=== PATIENT | female | born 1980 | race Caucasian/White ===

== ENCOUNTER 2018-03-20 04:48 | Emergency (ER) | payer OTHER ==
[2018-03-20] MEDS ORDERED: LORazepam 1 MG TAB ONE (05:12)
[2018-03-20] MEDS ORDERED: LORazepam 2 MG/ML INJ ONE (05:14)
[2018-03-20] MEDS ORDERED: LORazepam 2 MG/ML INJ IVP ONE ×2 (05:19→16:15)
[2018-03-20 05:34] LABS: PLATELET COUNT 265 10^3/uL (150-400)
--- NOTE | 2018-03-20 05:50 | EDPHY ---
H & P Stated Complaint: SI, anxiety, depression, gypsy Source: Patient Exam Limitations: Intoxication - Personal History LMP (Females 10-55): Irregular Current Tetanus Diphtheria and Acellular Pertussis (TDAP): No - Medical/Surgical History Hx Asthma: No Hx Chronic Respiratory Disease: No Hx Diabetes: No Hx Cardiac Disease: No Hx Renal Disease: No Hx Cirrhosis: No Hx Alcoholism: Yes Hx HIV/AIDS: No Hx Splenectomy or Spleen Trauma: No Other PMH: alcoholism - Social History Smoking Status: Current every day smoker Time Seen by Provider: 03/20/18 04:57 HPI/ROS: HPI The patient presents with suicidal ideations, brought in by friend from home. The patient says that she has access to ropes and bungee cords in her garage and nose friends who have guns. She has been feeling suicidal for the last several days and reports that over the last 2 months she has had increasing life stressors leading up to this point. She had a panic attack last night which prevented her from sleeping all night and became more severe throughout though morning hours. She is having trouble with her family, feels that she is being called names by them frequently. She has been turning to cocaine and alcohol to help her to cope. She has been in rehab on several occasions, last in December of this year. She has never been admitted to a mental health hospital. She has felt suicidal before in the setting of Lexapro use. She is currently not on any psychiatric medications. She does not see a therapist or a psychiatrist here.. REVIEW OF SYSTEMS 10 systems were reviewed and negative with the exception of the elements mentioned in the history of present illness. PMHx: Denies diabetes Soc Hx: Alcohol abuse, cigarette smoker, cocaine abuse PHYSICAL General Appearance: Appears intoxicated, pacing and upset Eyes: Pupils equal and round no pallor or injection ENT, Mouth: Mucous membranes moist Respiratory: There are no retractions, lungs are clear to auscultation Cardiovascular: Regular rate and rhythm Gastrointestinal: Abdomen is soft and non-tender, no masses, bowel sounds normal Neurological: A&O, moves all extremities Skin: Warm and dry, no rashes Musculoskeletal: Neck is supple non tender Extremities: symmetrical, full range of motion Psychiatric: Patient is oriented X 3, there is no agitation (Riguzzi,Romi) Constitutional: Initial Vital Signs Temperature (C) 36.6 C 03/20/18 04:49 Heart Rate 110 H 03/20/18 04:49 Respiratory Rate 20 03/20/18 04:49 Blood Pressure 180/166 H 03/20/18 04:49 O2 Sat (%) 96 03/20/18 04:49 O2 Delivery Mode Room Air O2 (L/minute) 2 Allergies/Adverse Reactions: No Known Allergies Allergy (Unverified 03/20/18 04:49) Home Medications: Medication Instructions Recorded NK [No Known Home Meds] 03/20/18 Medical Decision Making ED Course/Re-evaluation: I assumed care of the patient at 7:00 a.m. in the morning. (Alejandro Wilson) 4:15 p.m. the patient is starting to have some withdrawal symptoms. Will treat with Ativan. Awaiting evaluation. 5:00 p.m. Mental health has evaluated the patient would like to admit. They will consult there psychiatrist. 7:30 p.m. Patient accepted by Dr. Aggarwal to [facility]. Transfer paperwork completed. (Akhil Huddleston) Differential Diagnosis: This is a 38-year-old female who presents from home with anxiety and insomnia associated with suicidal thoughts. This is in the setting of alcohol and cocaine use. Patient seems to struggle with addiction to the substances and has been in rehab frequently. She is currently not on any psychiatric medications or in any sort of psychiatric care. I will place her on an M1 hold. I will give her a dose of Ativan for her anxiety. We will check basic labs. I anticipate at 7:00 a.m. The case will be signed out to the oncoming provider Dr. Wilson pending the patient's sobriety and evaluation. (Romi May) Care is transferred to Dr. Huddleston at 2pm. She is still awaiting psychiatric consultation and sobering. (Alejandro Wilson) - Data Points Laboratory Results: Laboratory Results 03/20/18 05:20 03/20/18 05:20 Medications Given: Discontinued Medications Lorazepam (Ativan Injection) 1 mg IVP EDNOW ONE Stop: 03/20/18 05:20 Last Admin: 03/20/18 05:24 Dose: 1 mg Lorazepam (Ativan Injection) 1 mg IVP EDNOW ONE Stop: 03/20/18 16:16 Last Admin: 03/20/18 16:19 Dose: 1 mg Departure - Departure Disposition: Other Psych, Not [facility] Clinical Impression: Suicidal ideation, Alcohol abuse, Cocaine abuse Condition: Good Instructions: Alcohol Intoxication (ED) Referrals: NONE *PRIMARY CARE P,. [Primary Care Provider] - As per Instructions
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
[2018-03-20] MEDS ORDERED: LORazepam 1 MG TAB PO ONE (19:28)
--- NOTE | 2018-03-20 19:40 | ASMTTCLDSP ---
TLC Discharge Disposition Disposition: Answers: Transfer Disposition Notes: Notes: In consultation with [facility] ED Physician, Akhil Huddleston MD, and on-call Psychiatrist, Charanjit Rashid MD, both concurred that pt does appear to meet 27-65 criteria requiring psychiatric hospitalization as pt does appear to be an imminent risk of harm to self due to a mental illness condition. Type of Hold: Answers: M1/72-hour Hold Hold initiated by: Answers: ED Physician For Transfers, Accepting [facility] Facility: For Transfers, Accepting [facility] Psychiatrist: For Transfers, Reason Dual DX program Patient is Being Transferred: Date Signed: 03/20/2018 07:39 PM Electronically Signed By:Imelda Patel
[2018-03-20 19:41] VITALS: BP 131/89
== END 2018-03-20 21:53 ==
DX: R45.851 Suicidal ideations (principal); F10.920 Alcohol use, unspecified with intoxication, uncomplicated; Y90.8 Blood alcohol level of 240 mg/100 ml or more; F14.10 Cocaine abuse, uncomplicated; F32.9 Major depressive disorder, single episode, unspecified; F41.9 Anxiety disorder, unspecified; F17.200 Nicotine dependence, unspecified, uncomplicated
CPT/HCPCS: 80305; 96374; G0480; J2060